=== PATIENT | male | born 1980 | race Caucasian/White ===

== ENCOUNTER 2018-07-18 03:53 | Emergency (ER) | payer OTHER ==
[~2018-07-18] VITALS: Ht 175.3 cm; Wt 81.6 kg
--- NOTE | 2018-07-18 03:55 | NUR ---
PT [facility] BLS. TAKEN TO BED 2
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
--- NOTE | 2018-07-18 04:11 | NUR ---
Dr. Desai evaluating patient at bedside.
[2018-07-18] MEDS ORDERED: ONDANSETRON 4 MG/2 ML VIAL IVP ONE (04:15)
[2018-07-18] MEDS ORDERED: NACL 0.9% 1,000 ML IV ONE (04:15)
[2018-07-18] MEDS ORDERED: fentaNYL 0.05 MG/ML VIAL IVP ONE (04:15)
[2018-07-18 04:43] LABS: BASOPHILS % (AUTO) 0.5 % (0.0-2.0); EOSINOPHILS # (AUTO) 0.2 K/uL (0-0.4); EOSINOPHILS % (AUTO) 3.8 % (0.0-4.0); HEMATOCRIT 43.2 % (36-52); LYMPHOCYTES # (AUTO) 1.4 K/uL (2.0-11.5); LYMPHOCYTES % (AUTO) 27.6 % (20.5-51.1); MEAN CORPUSCULAR HEMOGLOBIN 30 pg (27-31); MEAN CORPUSCULAR HGB CONC 35 g/dL (33-37); MEAN CORPUSCULAR VOLUME 87.5 fL (80-94); MONOCYTES # (AUTO) 0.3 K/uL (0.8-1.0); MONOCYTES % (AUTO) 7.1 % (1.7-9.3); PLATELET COUNT (AUTO) 168 K/uL (140-450); RED BLOOD CELL COUNT(AUTO) 4.93 MIL/uL (4.20-6.10); RED CELL DISTRIBUTION WIDTH 13.4 % (11.6-13.7); WHITE BLOOD COUNT (AUTO) 4.9 K/uL (4.8-10.8)
[2018-07-18 04:55] LABS: ANION GAP 17.5 (8-16); CHLORIDE 106 mmol/L (98-107); CREATININE 0.8 mg/dL (0.7-1.3); GFR ARICAN-AMERICAN 141 mL/min (>90); GLUCOSE 120 mg/dL (74-106); POTASSIUM 3.5 mmol/L (3.5-5.1); SODIUM SERUM 143 mmol/L (136-145); UREA NITROGEN, BLOOD 10 mg/dL (7-18)
[2018-07-18 05:01] LABS: ALBUMIN 3.6 g/dL (3.4-5.0); ASPARTATE AMINOTRANSFERASE 25 U/L (15-37); TOTAL BILIRUBIN 0.3 mg/dL (0.0-1.0)
--- NOTE | 2018-07-18 05:37 | NUR ---
PT TO CT AT THIS TIME
[2018-07-18] MEDS ORDERED: KETOROLAC 30 MG/ML VIAL IVP ONE ×2 (06:40→06:55)
[2018-07-18] MEDS ORDERED: KETOROLAC 30 MG/ML VIAL ONE (07:02)
--- NOTE | 2018-07-18 07:07 | NUR ---
Patient discharged with v/s stable. Written and verbal after care instructions given and explained. Patient alert, oriented and verbalized understanding of instructions. Ambulatory with steady gait. All questions addressed prior to discharge. ID band removed. Patient advised to follow up with PMD. Rx of NAPROSYN AND VALIUM given. Patient educated on indication of medication including possible reaction and side effects. Opportunity to ask questions provided and answered.
[2018-07-18 07:08] VITALS: BP 133/82
== END 2018-07-18 07:07 | disposition home or self-care (01) ==
LOC: MED 03:53
DX: S16.1XXA Strain of muscle, fascia and tendon at neck level, initial encounter (principal); S50.12XA Contusion of left forearm, initial encounter; R51 Headache; M54.5 Low back pain; V49.69XA Unspecified car occupant injured in collision with other motor vehicles in traffic accident, initial encounter; Y93.89 Activity, other specified; Y92.411 Interstate highway as the place of occurrence of the external cause; Y99.8 Other external cause status
CPT/HCPCS: 36415; 70450; 71045; 72125; 73090; 74177; 80053; 85025; 96374; 96375; 99285; G0482; J1885; J2405; J3010; J7030; Q0092; Q9967